=== PATIENT | male | born 1985 | race Caucasian/White ===

== ENCOUNTER 2016-12-02 09:43 | Emergency (ER) | payer SELFPAY ==
[~2016-12-02] VITALS: Ht 175.3 cm; Wt 73.2 kg
[~2016-12-02 09:43] MED LIST: ACYCLOVIR800 MG PO; LOTRISONE15 GM TP; NAPROSYN500 MG PO; PREDNISONE20 MG PO; VENTOLIN HFA18 GM IH; ZITHROMAX250 MG PO
[2016-12-02 09:51] VITALS: BP 125/72
[2016-12-02] MEDS ORDERED: LEVOFLOXACIN5 ML BOTH EYES (10:18)
== END 2016-12-02 10:55 | disposition home or self-care (01) ==
LOC: EME 09:43
DX: H10.9 Unspecified conjunctivitis (principal)
CPT/HCPCS: 99281; 99283

== ENCOUNTER 2017-05-15 17:05 | Emergency (ER) | payer SELFPAY ==
[~2017-05-15] VITALS: Ht 175.3 cm; Wt 60.3 kg
[~2017-05-15 17:05] MED LIST changes: +LEVOFLOXACIN5 ML BOTH EYES
[2017-05-15 18:14] VITALS: BP 123/67
[2017-05-15] MEDS ORDERED: BACTRIM,SEPT1 TABLET PO (19:12)
[2017-05-15] MEDS ORDERED: ZOVIRAX800 M1 PO (19:12)
[2017-05-15] MEDS ORDERED: NAPROSYN500 MG PO (19:40)
== END 2017-05-15 20:01 | disposition home or self-care (01) ==
LOC: EME 17:05
DX: B00.9 Herpesviral infection, unspecified (principal); L02.214 Cutaneous abscess of groin; F17.200 Nicotine dependence, unspecified, uncomplicated
CPT/HCPCS: 76857; 99281; 99284

== ENCOUNTER 2017-05-16 00:06 | Inpatient (IN) | payer OTHER ==
[~2017-05-16] VITALS: Ht 175.3 cm; Wt 73.9 kg
[~2017-05-16 00:06] MED LIST changes: +BACTRIM,SEPT1 TABLET PO; +ZOVIRAX800 M1 PO
[2017-05-16 01:53] LABS: HEMATOCRIT 36.5 % (38.0-50.0); MCH 30.3 PG (29.0-34.0); MCHC 34.2 G/DL (30.0-36.0); MCV 88.6 FL (86-99); MEAN PLAT.VOLUME 9.1 uM^3 (9.0-12.4); PLATELET COUNT 253 K/uL (156-360); RBC DIS.WIDTH-CV 11.7 % (11.8-14.6); RBC DIS.WIDTH-SD 37.4 % (39-53); RED BLOOD COUNT 4.12 M/uL (4.00-5.50); WHITE BLOOD COUNT 8.6 K/uL (4.1-10.2)
[2017-05-16 02:04] LABS: CHLORIDE 103 mEq/L (99-109); POTASSIUM 3.8 mEq/L (3.7-5.4); SODIUM 140 mEq/L (136-147)
[2017-05-16 02:07] LABS: GLUCOSE 105 mg/dL (70-99)
[2017-05-16 02:08] LABS: ANION GAP 11 MEQ/L (2-14); TOTAL BILIRUBIN 0.3 mg/dL (0.0-1.0)
[2017-05-16 02:10] LABS: ALKALINE PHOSPHATASE 64 IU/L (3-129); GFR ESTIMATE (CALCULATED) > 59 mL/min/
[2017-05-16 02:11] LABS: UREA NITROGEN (BUN) 11 mg/dL (9-23)
[2017-05-16 06:10] VITALS: BP 119/72
[2017-05-16 07:56] VITALS: BP 118/63
[2017-05-16 12:23] VITALS: BP 114/57
[2017-05-16 16:36] VITALS: BP 120/64
[2017-05-16 20:51] VITALS: BP 123/59
[2017-05-17 00:18] VITALS: BP 141/65
[2017-05-17 03:24] LABS: ADD MIUA? NO; BILIRUBIN NEGATIVE; BLOOD NEGATIVE; COLOR STRAW ((YELLOW)); GLUCOSE (STRIP) NEGATIVE; KETONES NEGATIVE; LEUKOCYTES NEGATIVE; NITRITE NEGATIVE; PROTEIN (STRIP) NEGATIVE; SPECIFIC GRAVITY 1.006 (1.000-1.030); UROBILINOGEN 0.2 MG/DL (0.2-1.0)
[2017-05-17 03:30] LABS: UCUL ADDED? NO
[2017-05-17 04:33] VITALS: BP 130/64
[2017-05-17 05:26] LABS: HEMATOCRIT 36.5 % (38.0-50.0); MCH 29.7 PG (29.0-34.0); MCHC 33.7 G/DL (30.0-36.0); MCV 88.2 FL (86-99); MEAN PLAT.VOLUME 9.4 uM^3 (9.0-12.4); PLATELET COUNT 270 K/uL (156-360); RBC DIS.WIDTH-CV 11.5 % (11.8-14.6); RBC DIS.WIDTH-SD 37.1 % (39-53); RED BLOOD COUNT 4.14 M/uL (4.00-5.50); WHITE BLOOD COUNT 10.4 K/uL (4.1-10.2)
[2017-05-17 05:49] LABS: ANION GAP 9 MEQ/L (2-14); CHLORIDE 104 MEQ/L (99-109); GFR ESTIMATE (CALCULATED) > 59 mL/min/; GLUCOSE 111 mg/dL (70-99); POTASSIUM 4.1 MEQ/L (3.7-5.4); SAMPLE HEMOLYSIS CHECK 0; SAMPLE ICTERIC CHECK 0; SAMPLE LIPEMIA CHECK 0; SODIUM 140 MEQ/L (136-147); UREA NITROGEN (BUN) 7 mg/dL (9-23)
[2017-05-17 08:30] VITALS: BP 123/67
[2017-05-17] MEDS ORDERED: BACTRIM,SEPT1 TABLET PO (10:49)
== END 2017-05-17 12:00 | disposition home or self-care (01) | DRG 728 ==
LOC: EME 00:06 → EXP 00:06 → 3EAST 04:53 → EDOF 04:53 → ENRESERV 04:58 → 3EAST 05:51
PROVIDERS: Hospitalist; Physician Assistant
DX: N48.22 Cellulitis of corpus cavernosum and penis (principal); L02.214 Cutaneous abscess of groin; N48.21 Abscess of corpus cavernosum and penis; A60.00 Herpesviral infection of urogenital system, unspecified; N43.3 Hydrocele, unspecified; N50.89 Other specified disorders of the male genital organs
CPT/HCPCS: 72193; 80048; 80053; 81003; 85027; 87070; 87075; 87077; 87147; 87186; 87205; 99281; 99284; J0133; J1650; J1885; J3370; J7030; J7050